=== PATIENT | male | born 1970 | race Caucasian/White ===

== ENCOUNTER 2021-08-06 12:19 | Emergency (ER) | payer MEDICARE ==
[2021-08-06 12:30] VITALS: BP 122/76; PULSE 71; RESP 20; TEMP 97
[2021-08-06] MEDS ORDERED: MORPHINE SULFATE 4 MG/ML SYRINGE IM STA (13:03)
[2021-08-06] MEDS ORDERED: methylPREDNISolone SOD SUCCI 125 MG/2 ML VIAL IM ONE (13:03)
--- NOTE | 2021-08-06 13:39 | XR ---
EXAMINATION TYPE: XR shoulder complete LT DATE OF EXAM: 08/06/2021 CLINICAL HISTORY: Pain after injury TECHNIQUE: Three views of the left shoulder are obtained. COMPARISON: None. FINDINGS: There is no acute fracture/dislocation evident in the left shoulder. Moderate narrowing of acromioclavicular joint greatest inferiorly. Slight type II downsloping acromion. Glenohumeral joint is maintained. The visualized ribs are intact. Overlying clothing or blanket material is present. IMPRESSION: There is no acute fracture or dislocation in the left shoulder.
--- NOTE | 2021-08-06 13:41 | XR ---
EXAMINATION TYPE: XR lumbar spine 3V DATE OF EXAM: 08/06/2021 Comparison: None Clinical History: 50-year-old male low back pain Findings: 5 lumbar type vertebral bodies. Very minimal endplate spondylosis throughout. Vertebral body heights are preserved and alignment is maintained. Impression: No vertebral compression collapse or malalignment.
--- NOTE | 2021-08-06 13:51 | ED ---
Back Pain HPI - General Chief Complaint: Back Pain/Injury Stated Complaint: Injury-Shoulder,back pain Time Seen by Provider: 08/06/21 12:50 Source: family, RN notes reviewed - History of Present Illness Initial Comments: Patient is a 50-year-old male that presents to emergency room with low back pain left shoulder pain. He notes that the back pain radiates down his bilateral legs. He notes that he is able to walk. He denied any issues urinating. He denied any saddle anesthesia bladder bowel incontinence or retention. He notes that the initial injury was when a car [place] in for [employer] car. He notes that since then he has had pain on the right lower back. He notes that is tender mid to low back. He denied any other issues or complaints. He is otherwise well-appearing. He denied chest pain shortness of breath headache nausea vomiting diarrhea constipation fever fatigue chills. - Related Data Previous Rx's Medication Instructions Recorded predniSONE 50 mg PO DAILY #5 tab 08/06/21 Allergies Allergy/AdvReac Type Severity Reaction Status Date / Time No Known Allergies Allergy Verified 08/06/21 12:26 Review of Systems ROS Statement: Those systems with pertinent positive or pertinent negative responses have been documented in the HPI. ROS Other: All systems not noted in ROS Statement are negative. Past Medical History Past Medical History: No Reported History Additional Past Medical History / Comment(s): deaf History of Any Multi-Drug Resistant Organisms: None Reported Past Surgical History: No Surgical Hx Reported Past Psychological History: No Psychological Hx Reported Smoking Status: Current every day smoker Past Alcohol Use History: None Reported Past Drug Use History: Marijuana General Exam Limitations: physical limitation (Patient is deaf) General appearance: alert, in no apparent distress Head exam: Present: atraumatic, normocephalic, normal inspection Eye exam: Present: normal appearance, PERRL, EOMI. Absent: scleral icterus, conjunctival injection, periorbital swelling ENT exam: Present: normal exam, mucous membranes moist Neck exam: Present: normal inspection Respiratory exam: Present: normal lung sounds bilaterally. Absent: respiratory distress, wheezes, rales, rhonchi, stridor Cardiovascular Exam: Present: regular rate, normal rhythm, normal heart sounds. Absent: systolic murmur, diastolic murmur, rubs, gallop, clicks Extremities exam: Present: normal inspection, full ROM, normal capillary refill. Absent: tenderness, pedal edema, joint swelling, calf tenderness Back exam: Present: normal inspection, paraspinal tenderness (Right lower back), other (Positive straight leg test on the right.) Neurological exam: Present: alert, oriented X3 Psychiatric exam: Present: normal affect, normal mood Skin exam: Present: warm, dry, intact, normal color. Absent: rash Course Vital Signs 08/06/21 12:26 Temperature 97.0 F L Pulse Rate 71 Respiratory 20 Rate Blood Pressure 122/76 O2 Sat by Pulse 97 Oximetry Medical Decision Making - Medical Decision Making 50-year-old male complaining of back pain that radiates down both legs and left shoulder pain. X-ray lumbar spine, x-ray of the left shoulder, 4 mg of morphine and 125 mg of Solu-Medrol ordered. X-rays of the lumbar spine and left shoulder negative for any acute fractures or dislocations. Patient most likely suffering from mechanical back pain and muscle strain from the initial injury. Patient is given discharge home with Tylenol Motrin and steroids. Case discussed with Dr. Ziegler, patient can discharge home. - Radiology Data Radiology results: report reviewed, image reviewed X-ray lumbar spine: No vertebral compression collapse or malalignment. Left shoulder x-ray: There is no acute fracture dislocation left shoulder. Disposition Clinical Impression: Mechanical back pain, Strain of lumbar region, Sciatica, Left shoulder pain Disposition: HOME SELF-CARE Condition: Stable Instructions (If sedation given, give patient instructions): Acute Low Back Pain (ED) Additional Instructions: Please return to the Emergency Department if symptoms worsen or any other concerns. Follow-up with primary care in 1-2 days. Get plenty or rest pain Take prednisone as prescribed. Use Tylenol Motrin every 3 hours as needed for pain. Is patient prescribed a controlled substance at d/c from ED?: No Referrals: Leo Villaseñor Jr, [Primary Care Provider] - 1-2 days Time of Disposition: 13:50
== END 2021-08-06 14:31 | disposition home or self-care (01) ==
LOC: EC 12:19
DX: S39.012A Strain of muscle, fascia and tendon of lower back, initial encounter (principal); M54.41 Lumbago with sciatica, right side; M25.512 Pain in left shoulder; F17.200 Nicotine dependence, unspecified, uncomplicated; F12.90 Cannabis use, unspecified, uncomplicated; W22.8XXA Striking against or struck by other objects, initial encounter
CPT/HCPCS: 72100; 73030; 99283; 96372 ×2; J2270; J2930

== ENCOUNTER → 2024-06-06 | Outpatient (CLI) | payer MEDICARE ==
--- NOTE | 2024-06-06 11:22 | MR ---
EXAMINATION TYPE: MR lumbar spine wo con DATE OF EXAM: 06/06/2024 COMPARISON: X-ray 05/21/2024 HISTORY: Chronic lower back pain, radiates into back of thighs. TECHNIQUE: T1 and T2 axial and sagittal images of the lumbar spine are submitted. FINDINGS: There is no abnormal signal seen within the visualized spinal cord or paraspinal soft tissu es. Left adrenal hyperplasia or adenoma. Question tiny gallstone. Mild degenerative disc disease with disc desiccation L3-L4. At L1-2 there is no disc herniation, canal stenosis, or foraminal encroachment. At L2-3 there is mild broad-based disc bulging but no canal stenosis or focal herniation. No foramina l encroachment. At L3-4 there is broad-based disc bulging greater paracentrally and laterally to the left with mild l eft foraminal encroachment. No canal stenosis. At L4-5 there is no disc herniation, canal stenosis, or foraminal encroachment. Facet arthropathy. At L5-S1 there is no disc herniation, canal stenosis, or foraminal encroachment IMPRESSION: 1. Disc bulging at L2-3 and L3-4 with mild left foraminal encroachment at L3-4. No canal stenosis.
== END | disposition home or self-care (01) ==
LOC: RADMRIMAIN 10:21
PROVIDERS: ATTEND Orthopaedic Surgery
DX: M47.816 Spondylosis without myelopathy or radiculopathy, lumbar region (principal); M51.36 Other intervertebral disc degeneration, lumbar region; E27.8 Other specified disorders of adrenal gland
CPT/HCPCS: 72148

== ENCOUNTER → 2024-07-12 | Outpatient (CLI) | payer MEDICARE ==
[2024-07-12 10:15] VITALS: BP 106/73; PULSE 82; RESP 16; TEMP 97.1
--- NOTE | 2024-07-12 14:43 | P.PAINPG ---
PQRS Measure Charge Sheet Comment: HISTORY OF PRESENT ILLNESS: A 53 yr old Hearing Impaired male w female gray tender at side as a referral from [facility] presents today w severe and chronic secondary to radiculopathy, spondylosis and facet arthropathy without myelopathy for evaluation. Pt states pain level is provoked at 8 /10 in intensity, constant, localized in the lumbar spine, predominantly axial, sharp in character w occasional shooting pain towards the R hip. Pain is provoked by walking for periods > 15 min. Pain is alleviated by PT x 6 wks which ended in Jan 2024, physician guided home exercises every other day since Jan 2024, manual massage, medications, repositioning and rest . PMH: OA, Hearing Impaired PSH: Colonoscopy SH: Daily tobacco use, No ETOH abuse, Cannabis use FH: Noncontributory All: See list Meds: See list REVIEW OF ORGAN SYSTEMS: CONSTITUTIONAL: No fevers or chills. No recent weight loss. NEUROLOGICAL: + numbness and tingling along the distal extremities. No seizure disorders or headaches. MUSCULOSKELETAL: + pain PSYCHIATRIC: Denies current depression or suicidal thoughts. Physical Examinations : Constitutional : Cooperative , not in acute distress . Neurologic : Cranial nerve II to XII intact. No focal neurological deficits. Psychiatric : alert & oriented x 3. Matching mood & appropriate affect. Judgment & insight intact. Musculoskeletal : Cervical Spine Motor strength in the deltoid and biceps: Normal right side. Normal Left side Motor strength biceps and the wrist extensors: Normal right side . Normal left side Motor strength in the triceps muscle: Normal right side. Normal left side Deep tendon reflexes: Normal at the biceps. Normal at Brachioradialis. Normal at triceps Vertebral body tenderness to deep palpation over Cervical facet loading test: positive bilaterally Spurling test: positive bilaterally Neck distraction test: positive bilaterally Roc sign: positive bilaterally Lumbar spine Motor strength lower extremities ,thigh and legs 5/5 Right side , 5/5 Left side Deep tendon reflexes : Normal Knee Jerk. Normal Ankle Jerk Vertebral body tenderness over L3 Hull Test positive BL L3-L4 Lumbar facet Loading Test: positive Right / positive Left Range of motion of the lumbar spine Flexion 30 degrees, extension 10 degrees Straight Leg Raise test: Left/ Right positive at degrees John test: positive right / positive left. Severe tenderness over the Sacroiliac joint on the Right / Left sides Gaenslen test: positive bilaterally Seated flexion test: positive bilaterally. Sacral spine : Severe tenderness over the Sacroiliac joint: right side / left side Range of motion: Flexion of the lumbar spine <60 degrees Range of motion: Extension of the lumbar spine <20 degrees Gaenslen's Test positive John test: positive right side / le ft side Thigh Thrust Test Sacral Thrust Test Imaging: MRI non contrast lumbar spine from 06/06/24 reviewed Assessment/ Plan : Lumbar radiculopathy Recommendation of STONEY L3-L4 #1. Risks, benefits of procedure discussed and patient verbalized understanding. Admits to anti- coagulant use or medical history of diabetes. Protocol for discontinuation/ continuation of medications gael procedure discussed. All questions answered. I have spent greater than 30 minutes on patient care today. Dr Heart was available by phone for the evaluation of this patient. The time was used to review the medical records including relevant urine studies and Prescription history (MAPs), review of the available imaging, evaluation and examination of the patient, coordination of care with the medical staff and if applicable referring physicians, as well as creation of the medical record Home Medications: Ambulatory Orders Pregabalin 300 mg PO BID PRN 11/17/22 Controlled Substance Measures - Controlled Substance Measures Is patient prescribed a controlled substance at discharge?: No
== END | disposition home or self-care (01) ==
LOC: PNWHC3 09:34
PROVIDERS: ATTEND Specialist
DX: M47.26 Other spondylosis with radiculopathy, lumbar region (principal); M43.16 Spondylolisthesis, lumbar region; Z91.030 Bee allergy status; Z88.8 Allergy status to other drugs, medicaments and biological substances; Z72.0 Tobacco use
CPT/HCPCS: 99211

== ENCOUNTER 2024-08-03 09:03 | Day surgery (SDC) | payer MEDICARE ==
[~2024-08-03 09:03] MED LIST: LACTATED RINGERS 1,000 ML IV SCH
[2024-08-03 09:33] VITALS: TEMP 96.8
[2024-08-03] MEDS ORDERED: methylPREDNISolone ACETATE 80 MG/ML 1 ML VIAL ONE (09:55)
[2024-08-03] MEDS ORDERED: IOPAMIDOL M200 10 ML VIAL ONE (09:55)
--- NOTE | 2024-08-03 10:02 | P.PCN ---
Date of Procedure: 08/03/24 Procedure(s) Performed: PREOPERATIVE DIAGNOSIS: 1- Lumbar Degenerative Disc Diseases 2-Lumbar radiculopathy POSTOPERATIVE DIAGNOSIS: 1-lumbar degenerative disc disease. 2-lumbar radiculopathy PROCEDURE 1. Lumbar epidural steroid injection under fluoroscopic guidance at the L3-4 level. (Fluoroscopy imaging was available in radiology department) 2. Lumbar epidurogram. ANESTHESIA: Lidocaine 1% 3 and then only. EBL: Minimal PROCEDURE INDICATION: The patient with low back pain and radiculitis symptoms unresponsive to conservative treatment. Fluoroscopy was used to optimize visualization of the needle placement and to maximize safety. PROCEDURE DESCRIPTION / TECHNIQUE: The patient was seen and identified in the preoperative area. Risks, benefits, complications including but not limited to infections ,bleeding ,allergic reaction to the medications ,nerve damage and not complete pain releife , and alternatives were discussed with the patient. The patient agreed to proceed with the procedure and signed the consent, and vital signs were stable. Patient was taken to the OR and time out was completed. The patient was placed in the prone position on procedure table and a pillow was placed under the abdomen to reduce lumbar lordosis. The lumbosacral area was prepped and draped in the usual sterile fashion.ere closely monitored during the procedure. Vital signs was monitered during the entire procedure. Using anterior-posterior fluoroscopy, the L3-4 interlaminar space was identif ied and the skin over this site was marked and then infiltrated with 1% lidocaine subcutaneously. Subsequently, a 20-gauge Tuohy epidural needle was inserted and advanced toward the epidural space using the ``Loss of resistance technique and guided by AP and lateral fluoroscopy. The correct needle position in the epidural space was verified with the injection of 2 mL of the water soluble contrast dye Isovue 200 contrast and observing an excellent epidurogram with the epidural spread of the dye, after negative aspiration for blood and CSF and in the absence of paresthesias. Again after negative aspiration, a 6 ml mixture containing 80 mg of Depo-medrol ( Preservetive Free ), and 2 ml of preservative free Normal Saline, and 2 ml of preservative free lidocaine 1% solution was injected and a washout of epidurogram was seen. Needle was withdrawn intact, skin was cleansed, and bandages were applied. COMPLICATIONS: None DISPOSITION / PLANS: The patient was placed in a supine position and transferred to the recovery area in a stable condition for observation. There was no evidence of lower extremity motor or sensory deficit after the procedure. Patient was discharged from the recovery room after meeting discharge criteria. Home discharge instructions were given to the patient by the staff. The patient was reexamined prior to discharge. The patient will schedule a follow up in the clinic in 2-4 weeks.
[2024-08-03 10:13] VITALS: RESP 18
[2024-08-03 10:39] VITALS: BP 116/74; PULSE 78
--- NOTE | 2024-08-03 11:36 | FL ---
EXAMINATION TYPE: FL guided pain mgmt statistic DATE OF EXAM: 08/03/2024 FLUOROSCOPY Lumbar epidural injection 1sec fluoro time .[id number] Painting 1 image is submitted [facility], , 08/03/2024 11:34 AM
== END 2024-08-03 10:25 | disposition home or self-care (01) ==
LOC: ORPAIN 09:03
PROVIDERS: ATTEND Specialist
DX: M51.16 Intervertebral disc disorders with radiculopathy, lumbar region (principal); Z91.030 Bee allergy status
CPT/HCPCS: 62323; Q9966; J1010

== ENCOUNTER → 2024-08-23 | Outpatient (CLI) | payer MEDICARE ==
[2024-08-23 09:53] VITALS: BP 106/74; PULSE 95; RESP 20; TEMP 97.9
--- NOTE | 2024-08-23 14:18 | P.PAINPG ---
Objective - Vital Signs Vital signs: Vital Signs Temp 97.9 F 08/23/24 09:50 Pulse 95 08/23/24 09:50 Resp 20 08/23/24 09:50 BP 106/74 08/23/24 09:50 Pulse Ox 94 L 08/23/24 09:50 FiO2 Intake & Output 08/22/24 08/23/24 08/23/24 18:59 06:59 18:59 Weight 172 kg PQRS Measure Charge Sheet Mode of Arrival: Ambulatory Comment: HISTORY OF PRESENT ILLNESS: A 53 yr old Hearing Impaired male w mom at side presents today w severe and chronic secondary to radiculopathy, spondylosis and facet arthropathy without myelopathy for evaluation s/p STONEY L3-L4 #1. Pt states he experienced 70% pain relief x 2 wks s/p procedure. Pt states pain level is provoked at 4-6 /10 in intensity, intermittent, localized in the lumbar spine, predominantly axial, sharp in character without shooting pain. Pain is provoked by walking for periods > 15 min. Pain is alleviated by PT x 6 wks which ended in Jan 2024, physician guided home exercises every other day since Jan 2024, manual massage, medications, repositioning and rest . Interventional procedures include STONEY L3-L4 x1 Medications include Cannabis use REVIEW OF ORGAN SYSTEMS: CONSTITUTIONAL: No fevers or chills. No recent weight loss. NEUROLOGICAL: + numbness and tingling along the distal extremities. No seizure disorders or headaches. MUSCULOSKELETAL: + pain PSYCHIATRIC: Denies current depression or suicidal thoughts. Physical Examinations : Constitutional : Cooperative , not in acute distress . Neurologic : Cranial nerve II to XII intact. No focal neurological deficits. Psychiatric : alert & oriented x 3. Matching mood & appropriate affect. Judgment & insight intact. Musculoskeletal : Cervical Spine Motor strength in the deltoid and biceps: Normal right side. Normal Left side Motor strength biceps and the wrist extensors: Normal right side . Normal left side Motor strength in the triceps muscle: Normal right side. Normal left side Deep tendon reflexes: Normal at the biceps. Normal at Brachioradialis. Normal at triceps Vertebral body tenderness to deep palpation over Cervical facet loading test: positive bilaterally Spurling test: positive bilaterally Neck distraction test: positive bilaterally Roc sign: positive bilaterally Lumbar spine Motor strength lower extremities ,thigh and legs 5/5 Right side , 5/5 Left side Deep tendon reflexes : Normal Knee Jerk. Normal Ankle Jerk Vertebral body tenderness over L3 Hull Test positive BL L3-L4 Lumbar facet Loading Test: positive Right / positive Left Range of motion of the lumbar spine Flexion 30 degrees, extension 10 degrees Straight Leg Raise test: Left/ Right positive at degrees John test: positive right / positive left. Severe tenderness over the Sacroiliac joint on the Right / Left sides Gaenslen test: positive bilaterally Seated flexion test: positive bilaterally. Sacral spine : Severe tenderness over the Sacroiliac joint: right side / left side Range of motion: Flexion of the lumbar spine <60 degrees Range of motion: Extension of the lumbar spine <20 degrees Gaenslen's Test positive John test: positive right side / left side Thigh Thrust Test Sacral Thrust Test Imaging: MRI non contrast lumbar spine from 06/06/24 reviewed Assessment/ Plan : Lumbar radiculopathy Recommendation of R paramedian STONEY L3-L4 #2. Risks, benefits of procedure discussed and patient verbalized understanding. Admits to anti- coagulant use or medical history of diabetes. Protocol for discontinuation/ continuation of medications gael procedure discussed. All questions answered. I have spent greater than 30 minutes on patient care today. Dr Heart was available by phone for the evaluation of this patient. The time was used to review the medical records including relevant urine studies and Prescription history (MAPs), review of the available imaging, evaluation and examination of the patient, coordination of care with the medical staff and if applicable referring physicians, as well as creation of the medical record PQRS Narrative: Narcotic Agreement Date Signed 08/23/24 Blood Pressure 106/74 Pain Intensity [Lower Back] 4 Scale Used Numeric (1 - 10) Hx Alcohol Use (MH) Yes Home Medications: Ambulatory Orders Cholecalciferol [Vitamin D3 (25 Mcg = 1000 Iu)] 1 tab PO DAILY 08/01/24 Celecoxib [CeleBREX] 100 mg PO BID 30 Days #60 cap 08/23/24 Controlled Substance Measures - Controlled Substance Measures Is patient prescribed a controlled substance at discharge?: No
== END ==
LOC: PNWHC3 09:38
PROVIDERS: ATTEND Specialist
DX: M54.16 Radiculopathy, lumbar region (principal); Z91.030 Bee allergy status; Z88.8 Allergy status to other drugs, medicaments and biological substances
CPT/HCPCS: 99211

== ENCOUNTER 2024-09-20 09:37 | Day surgery (SDC) | payer MEDICARE ==
[2024-09-19 12:03] VITALS: BMI 25.1
[2024-09-20 10:03] VITALS: RESP 16; TEMP 96.9
[2024-09-20] MEDS ORDERED: methylPREDNISolone ACETATE 80 MG/ML 1 ML VIAL ONE (10:36)
[2024-09-20] MEDS ORDERED: IOPAMIDOL M200 10 ML VIAL ONE (10:36)
--- NOTE | 2024-09-20 10:42 | P.PCN ---
Date of Procedure: 09/20/24 Procedure(s) Performed: PREOPERATIVE DIAGNOSIS: 1- Lumbar Degenerative Disc Diseases 2-Lumbar radiculopathy POSTOPERATIVE DIAGNOSIS: 1-lumbar degenerative disc disease. 2-lumbar radiculopathy PROCEDURE 1. Lumbar epidural steroid injection under fluoroscopic guidance at the L3-4 level. (Fluoroscopy imaging was available in radiology department) 2. Lumbar epidurogram. ANESTHESIA: Lidocaine 1% 3 and then only. EBL: Minimal PROCEDURE INDICATION: The patient with low back pain and radiculitis symptoms unresponsive to conservative treatment. Fluoroscopy was used to optimize visualization of the needle placement and to maximize safety. PROCEDURE DESCRIPTION / TECHNIQUE: The patient was seen and identified in the preoperative area. Risks, benefits, complications including but not limited to infections ,bleeding ,allergic reaction to the medications ,nerve damage and not complete pain releife , and alternatives were discussed with the patient. The patient agreed to proceed with the procedure and signed the consent, and vital signs were stable. Patient was taken to the OR and time out was completed. The patient was placed in the prone position on procedure table and a pillow was placed under the abdomen to reduce lumbar lordosis. The lumbosacral area was prepped and draped in the usual sterile fashion.ere closely monitored during the procedure. Vital signs was monitered during the entire procedure. Using anterior-posterior fluoroscopy, the L3-4 interlaminar space was identifi ed and the skin over this site was marked and then infiltrated with 1% lidocaine subcutaneously. Subsequently, a 20-gauge Tuohy epidural needle was inserted and advanced (Right paramedial ) toward the epidural space using the ``Loss of resistance technique and guided by AP and lateral fluoroscopy. The correct needle position in the epidural space was verified with the injection of 2 mL of the water soluble contrast dye Isovue 200 contrast and observing an excellent epidurogram with the epidural spread of the dye, after negative aspiration for blood and CSF and in the absence of paresthesias. Again after negative aspiration, a 6 ml mixture containing 80 mg of Depo-medrol ( Preservetive Free ), and 2 ml of preservative free Normal Saline, and 2 ml of preservative free lidocaine 1% solution was injected and a washout of epidurogram was seen. Needle was withdrawn intact, skin was cleansed, and bandages were applied. COMPLICATIONS: None DISPOSITION / PLANS: The patient was placed in a supine position and transferred to the recovery area in a stable condition for observation. There was no evidence of lower extremity motor or sensory deficit after the procedure. Patient was discharged from the recovery room after meeting discharge criteria. Home discharge instructions were given to the patient by the staff. The patient was reexamined prior to discharge. The patient will schedule a follow up in the clinic in 2-4 weeks.
[2024-09-20] MEDS ORDERED: LACTATED RINGERS 1,000 ML IV SCH (10:50)
[2024-09-20 11:12] VITALS: BP 119/71; PULSE 72
--- NOTE | 2024-09-20 12:14 | FL ---
EXAMINATION TYPE: FL guided pain mgmt statistic DATE OF EXAM: 09/20/2024 10:48 AM COMPARISON: Pre Operative Images if available both CT/MRI or plain film CLINICAL INDICATION: Male, 53 years old with history of Lumbar Epid Inj; TECHNIQUE: FL guided pain mgmt statistic, multiple fluoroscopic images provided for procedure. Total fluoroscopy time: 5.7 seconds Total submitted images to PACS: 1 DAP: [id number] mGym2 Gycm2 uGym2 cGycm2 or equivalent. FINDINGS: Fluoroscopic images during injection for pain management demonstrate multilevel degeneration changes throughout the spine. No evidence for fracture. No acute process identified. IMPRESSION: 1. No evidence for intraoperative complication. 2. Please see the operative/procedural note for further details. [facility], , 09/20/2024 12:12 PM
== END 2024-09-20 11:25 | disposition home or self-care (01) ==
LOC: ORPAIN 09:37
PROVIDERS: ATTEND Specialist
DX: M51.16 Intervertebral disc disorders with radiculopathy, lumbar region (principal); Z91.030 Bee allergy status; Z88.8 Allergy status to other drugs, medicaments and biological substances
CPT/HCPCS: 62323; Q9966; J1010

== ENCOUNTER 2024-12-05 19:41 | Emergency (ER) | payer MEDICARE ==
[2024-12-05 20:01] VITALS: RESP 18; TEMP 97.9
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
[2024-12-05 21:13] VITALS: BP 123/80; PULSE 97
[2024-12-05] MEDS: CYCLOBENZAPRINE 10 MG TAB PO STA (21:17)
[2024-12-05] MEDS: ACET/COD 300 MG/30 MG STARTER PACK 6 TAB BTL PO STA (21:17)
== END 2024-12-05 21:23 | disposition home or self-care (01) ==
LOC: EC 19:41
DX: S20.211A Contusion of right front wall of thorax, initial encounter (principal); S70.01XA Contusion of right hip, initial encounter; S09.90XA Unspecified injury of head, initial encounter; F17.200 Nicotine dependence, unspecified, uncomplicated; Y09 Assault by unspecified means
CPT/HCPCS: 70450; 72125; 73502; 99284

== ENCOUNTER 2025-03-11 05:59 | Emergency (ER) | payer MEDICARE ==
[2025-03-11 06:08] VITALS: RESP 18; TEMP 97.3
--- NOTE | 2025-03-11 06:34 | ED ---
General Adult HPI - General Chief complaint: Chest Pain Stated complaint: oli Time Seen by Provider: 03/11/25 06:07 Source: patient, family, RN notes reviewed Mode of arrival: ambulatory Limitations: language barrier - History of Present Illness Initial comments: 54 year old male presents to the ED for evaluation of chest pain. He reports that the pain started about 2 hours ago and he continues to have tightness and SOB. Patient states that he woke up spitting up some phlegm that was frothy, burning seemed to radiate up his chest. Denies any back pain the chest pain does not radiate anywhere. He has had cardiac catheterization a few years ago with no hx of stent placement. He is here with his to translate and denies any recent fever, chills, abdominal pain or trauma/injuries. - Related Data Home Medications Medication Instructions Recorded Confirmed Cholecalciferol [Vitamin D3 (25 1 tab PO DAILY 08/01/24 09/20/24 Mcg = 1000 Iu)] Previous Rx's Medication Instructions Recorded Cyclobenzaprine [Flexeril] 10 mg PO TID PRN #15 tab 12/05/24 Allergies Allergy/AdvReac Type Severity Reaction Status Date / Time bee venom protein (honey bee) Allergy Anaphylaxis Verified 03/11/25 06:08 menthol [From [employer]] AdvReac Rash/Hives Verified 03/11/25 06:08 methyl salicylate AdvReac Rash/Hives Verified 03/11/25 06:08 [From [employer]] Review of Systems ROS Statement: Those systems with pertinent positive or pertinent negative responses have been documented in the HPI. ROS Other: All systems not noted in ROS Statement are negative. Past Medical History Past Medical History: Hearing Disorder / Deafness, Musculoskeletal Disorder, Osteoarthritis (OA) Additional Past Medical History / Comment(s): Deaf, herniated bulging discs, pinched nerve. History of Any Multi-Drug Resistant Organisms: None Reported Past Surgical History: No Surgical Hx Reported Additional Past Surgical History / Comment(s): Colonoscopy, jaw surgery, pain clinic procedure. Past Anesthesia/Blood Transfusion Reactions: No Reported Reaction Past Psychological History: No Psychological Hx Reported Smoking Status: Current every day smoker Past Alcohol Use History: Rare Past Drug Use History: Marijuana General Exam Limitations: no limitations General appearance: alert, in no apparent distress Head exam: Present: atraumatic, normocephalic, normal inspection Eye exam: Present: normal appearance, PERRL, EOMI. Absent: scleral icterus, conjunctival injection, periorbital swelling ENT exam: Present: normal exam, mucous membranes moist Neck exam: Present: normal inspection, full ROM. Absent: tenderness, meningismus, lymphadenopathy Respiratory exam: Present: normal lung sounds bilaterally. Absent: respiratory distress, wheezes, rales, rhonchi, stridor Cardiovascular Exam: Present: regular rate, normal rhythm, normal heart sounds. Absent: systolic murmur, diastolic murmur, rubs, gallop, clicks GI/Abdominal exam: Present: soft, normal bowel sounds. Absent: distended, tenderness, guarding, rebound, rigid Course Vital Signs 03/11/25 06:00 Temperature 97.3 F L Pulse Rate 81 Respiratory 18 Rate Blood Pressure 121/82 O2 Sat by Pulse 95 Oximetry EKG Findings - EKG Comments: EKG Findings:: EKG performed at 6: 19 sinus rhythm rate of 76 [place] 144 QRS 96 QT/QTc 379/410 - EKG Results: EKG: interpreted by [facility] Medical Decision Making - Medical Decision Making Was pt. sent in by a medical professional or institution (, PA, REFERRAL MANAGER, urgent care, hospital, or shelter...) When possible be specific @ -No Did you speak to anyone other than the patient for history (EMS, parent, family, police, friend...)? What history was obtained from this source @ -No Did you review nursing and triage notes (agree or disagree)? Why? @ -I reviewed and agree with nursing and triage notes Were old charts reviewed (outside hosp., previous admission, EMS record, old EKG, old radiological studies, urgent care reports/EKG's, shelter records)? Report findings @ -No old charts were reviewed Differential Diagnosis (chest pain, altered mental status, abdominal pain women, abdominal pain men, vaginal bleeding, weakness, fever, dyspnea, syncope, headache, dizziness, GI bleed, back pain, seizure, CVA, palpatations, mental health, musculoskeletal)? @ -Differential Chest Pain: Stable Angina, Unstable Angina, STEMI, NSTEMI Aortic Dissection, Pneumothorax, Musculoskeletal, Esophageal Spasm GERD, Cholecystitis, Pancreatitis, Zoster, this is not meant to be an all-inclusive list. EKG interpreted by me (3pts min.). @ -As above X-rays interpreted by me (1pt min.). @ -Chest x-ray shows no acute cardiopulmonary process. CT interpreted by me (1pt min.). @ -None done U/S interpreted by me (1pt. min.). @ -None done What testing was considered but not performed or refused? (CT, X-rays, U/S, labs)? Why? @ -None What meds were considered but not given or refused? Why? @ -None Did you discuss the management of the patient with other professionals (raghav mari i.e. , PA, REFERRAL MANAGER, lab, RT, psych nurse, social worker delinquency prevention, book sorter, teacher, chief nursing officer, case worker)? Give summary @ -No Was smoking cessation discussed for >3mins.? @ -No Was critical care preformed (if so, how long)? @ -No Were there social determinants of health that impacted care today? How? (Homelessness, low income, unemployed, alcoholism, drug addiction, transportation, low edu. Level, literacy, decrease access to med. care, group home, rehab)? @ -No Was there de-escalation of care discussed even if they declined (Discuss DNR or withdrawal of care, Hospice)? DNR status @ -No What co-morbidities impacted this encounter? (DM, HTN, Smoking, COPD, CAD, Cancer, CVA, ARF, Chemo, Hep., AIDS, mental health diagnosis, sleep apnea, morbid obesity)? @ -Smoking Was patient admitted / discharged? Hospital course, mention meds given and route, prescriptions, significant lab abnormalities, going to OR and other pertinent info. @ -Discharge patient presented for gastric, chest discomfort. Patient states he feels great improved this time. I did recommend admission including echocardiogram, cardiac evaluation given risk factors for symptoms this morning it started at 5 AM. Patient declines, refuses admission understands risk of leaving including . Patient states he return if symptoms worsen or return Undiagnosed new problem with uncertain prognosis? @ -No Drug Therapy requiring intensive monitoring for toxicity (Heparin, Nitro, Insulin, Cardizem)? @ -No Were any procedures done? @ -No Diagnosis/symptom? @ -Atypical chest pain Acute, or Chronic, or Acute on Chronic? @ -Acute Uncomplicated (without systemic symptoms) or Complicated (systemic symptoms)? @ -Complicated Side effects of treatment? @ -No Exacerbation, Progression, or Severe Exacerbation? @ -No Poses a threat to life or bodily function? How? (Chest pain, [place], [place], pneumonia, PE, COPD, DKA, ARF, appy, cholecystitis, CVA, Diverticulitis, Homicidal, Suicidal, threat to staff... and all critical care pts) @ -Yes chest pain possible threat to cardiac function - Lab Data Result diagrams: 03/11/25 06:20 03/11/25 06:20 Lab Results 03/11/25 03/11/25 03/11/25 Range/Units 06:20 06:20 06:20 WBC 17.16 H (4.50-10.00) 10*3/uL RBC 4.94 (4.40-5.60) 10*6/uL Hgb 15.0 (13.0-17.0) g/dL Hct 43.8 (39.6-50.0) % MCV 88.7 (80.0-97.0) fL MCH 30.4 (27.0-32.0) pg MCHC 34.2 (32.0-37.0) g/dL Plt Count 323 (140-440) 10*3/uL MPV 9.4 L (9.5-12.2) fL Immature Gran % (Auto) 0.3 % Immature Gran # 0.06 H (0.00-0.04) 10*3/uL PT 10.4 (10.0-12.5) sec INR 0.9 (<1.2) APTT 25.0 (22.0-30.0) sec D-Dimer 0.20 (<0.60) mg/L FEU Sodium 138 (137-145) mmol/L Potassium 4.3 (3.5-5.1) mmol/L Chloride 108 H (98-107) mmol/L Carbon Dioxide 22 (22-30) mmol/L Anion Gap 8 mmol/L BUN 14 (9-20) mg/dL Creatinine 1.00 (0.66-1.25) mg/dL Est GFR (CKD-EPI)AfAm >90 (>60 ml/min/1.73 sqM) Est GFR (CKD-EPI)NonAf 86 (>60 ml/min/1.73 sqM) Glucose 102 H (74-99) mg/dL Calcium 9.0 (8.4-10.2) mg/dL Magnesium 2.3 (1.6-2.3) mg/dL Total Bilirubin 0.7 (0.2-1.3) mg/dL AST 27 (17-59) U/L ALT 12 (4-49) U/L Alkaline Phosphatase 92 (38-126) U/L Troponin I (0.000-0.034) ng/mL NT-Pro-B Natriuret Pep 20 pg/mL Total Protein 6.7 (6.3-8.2) g/dL Albumin 4.1 (3.5-5.0) g/dL 03/11/25 Range/Units 06:20 WBC (4.50-10.00) 10*3/uL RBC (4.40-5.60) 10*6/uL Hgb (13.0-17.0) g/dL Hct (39.6-50.0) % MCV (80.0-97.0) fL MCH (27.0-32.0) pg MCHC (32.0-37.0) g/dL Plt Count (140-440) 10*3/uL MPV (9.5-12.2) fL Immature Gran % (Auto) % Immature Gran # (0.00-0.04) 10*3/uL PT (10.0-12.5) sec INR (<1.2) APTT (22.0-30.0) sec D-Dimer (<0.60) mg/L FEU Sodium (137-145) mmol/L Potassium (3.5-5.1) mmol/L Chloride (98-107) mmol/L Carbon Dioxide (22-30) mmol/L Anion Gap mmol/L BUN (9-20) mg/dL Creatinine (0.66-1.25) mg/dL Est GFR (CKD-EPI)AfAm (>60 ml/min/1.73 sqM) Est GFR (CKD-EPI)NonAf (>60 ml/min/1.73 sqM) Glucose (74-99) mg/dL Calcium (8.4-10.2) mg/dL Magnesium (1.6-2.3) mg/dL Total Bilirubin (0.2-1.3) mg/dL AST (17-59) U/L ALT (4-49) U/L Alkaline Phosphatase (38-126) U/L Troponin I <0.012 (0.000-0.034) ng/mL NT-Pro-B Natriuret Pep pg/mL Total Protein (6.3-8.2) g/dL Albumin (3.5-5.0) g/dL Disposition Clinical Impression: Atypical chest pain Disposition: HOME SELF-CARE Condition: Fair Instructions (If sedation given, give patient instructions): Chest Pain (ED) Additional Instructions: Please return to the Emergency Department if symptoms worsen or any other concerns. Is patient prescribed a controlled substance at d/c from ED?: No Referrals: Rosy Stoll NPC [REFERRING] - 1-2 days Time of Disposition: 07:53
[2025-03-11 06:40] LABS: HCT 43.8 % (39.6-50.0); MCH 30.4 pg (27.0-32.0); MCHC 34.2 g/dL (32.0-37.0); MCV 88.7 fL (80.0-97.0); Mean Platelet Volume 9.4 fL (9.5-12.2); Platelet Count 323 10*3/uL (140-440); RBC 4.94 10*6/uL (4.40-5.60); RDW 13.2 % (11.5-14.5); WBC 17.16 10*3/uL (4.50-10.00)
--- NOTE | 2025-03-11 06:43 | XR ---
EXAMINATION TYPE: XR chest 2V DATE OF EXAM: 03/11/2025 CLINICAL INDICATION: Male, 54 years old with history of Chest Pain, TECHNIQUE: Frontal and lateral views of the chest are obtained. COMPARISON: Chest x-ray December 05, 2022 FINDINGS: Overlying EKG leads are present. There is no focal air space opacity, pleural effusion, or pneumothor ax seen. The cardiac silhouette size is upper limits of normal. The osseous structures are intact. IMPRESSION: No acute process. [facility], , 03/11/2025 6:41 AM
[2025-03-11 07:07] LABS: INR 0.9 (<1.2); Prothrombin Time 10.4 sec (10.0-12.5)
[2025-03-11 07:25] LABS: ALT 12 U/L (4-49); AST 27 U/L (17-59); African American GFR (CKD) >90 (>60 ml/min/1.73 sqM); Albumin 4.1 g/dL (3.5-5.0); Alkaline Phosphatase 92 U/L (38-126); Anion Gap 8 mmol/L; Blood Urea Nitrogen 14 mg/dL (9-20); Carbon Dioxide 22 mmol/L (22-30); Chloride 108 mmol/L (98-107); Glucose 102 mg/dL (74-99); Magnesium 2.3 mg/dL (1.6-2.3); Non-African American GFR(CKD) 86 (>60 ml/min/1.73 sqM); Potassium 4.3 mmol/L (3.5-5.1); Sodium 138 mmol/L (137-145); Total Bilirubin 0.7 mg/dL (0.2-1.3); Total Protein 6.7 g/dL (6.3-8.2)
[2025-03-11 07:32] LABS: NT-Pro-B-Type Natriuretic Pept 20 pg/mL
[2025-03-11 08:31] VITALS: BP 128/74; PULSE 87
[2025-03-11 08:52] LABS: Monocytes # (M) 0.34 k/uL (0-1.0); Neutrophils # (M) 6.52 k/uL (1.3-7.7); Neutrophils % (M) 38 %; Nucleated Red Blood Cells 0 /100 WBC (0-0); Total Cells Counted 100
== END 2025-03-11 08:31 | disposition home or self-care (01) ==
LOC: EC 05:59
DX: R07.89 Other chest pain (principal); F17.200 Nicotine dependence, unspecified, uncomplicated; Z91.030 Bee allergy status; Z88.8 Allergy status to other drugs, medicaments and biological substances
CPT/HCPCS: 36415; 71046; 80053; 83735; 83880; 84484; 85025; 85379; 85610; 85730; 93005; 99285